=== PATIENT | female | born 1990 | race Caucasian/White ===

== ENCOUNTER 2020-12-31 20:40 | Emergency (ER) | payer MEDICAID ==
[~2020-12-31] VITALS: Ht 162.6 cm; Wt 64.5 kg
[2020-12-31 20:56] VITALS: BP 121/69
[2021-01-01] MEDS: KETOROLAC TROMETHAMINE 30 MG/ML VIAL IM ONE (00:18)
== END 2021-01-01 02:07 | disposition home or self-care (01) ==
LOC: EMS 20:43
DX: S93.401A Sprain of unspecified ligament of right ankle, initial encounter (principal); S93.402A Sprain of unspecified ligament of left ankle, initial encounter; Z88.0 Allergy status to penicillin; W18.40XA Slipping, tripping and stumbling without falling, unspecified, initial encounter; Y93.89 Activity, other specified; Y92.89 Other specified places as the place of occurrence of the external cause; Y99.8 Other external cause status
CPT/HCPCS: 73610 ×2; 73630; 96372; 99283; J1885